=== PATIENT | female | born 1940 | race Caucasian/White ===

== ENCOUNTER → 2018-06-08 | Outpatient (CLI) | payer OTHER | LOC: M.WC 08:48 | DX: I87.312 Chronic venous hypertension (idiopathic) with ulcer of left lower extremity (principal); L97.822 Non-pressure chronic ulcer of other part of left lower leg with fat layer exposed; I89.0 Lymphedema, not elsewhere classified; I11.0 Hypertensive heart disease with heart failure; I50.22 Chronic systolic (congestive) heart failure; I48.2 Chronic atrial fibrillation; E78.2 Mixed hyperlipidemia; E03.8 Other specified hypothyroidism; E66.9 Obesity, unspecified; M05.80 Other rheumatoid arthritis with rheumatoid factor of unspecified site; M06.9 Rheumatoid arthritis, unspecified; J45.909 Unspecified asthma, uncomplicated; F33.1 Major depressive disorder, recurrent, moderate; F02.80 Dementia in other diseases classified elsewhere, unspecified severity, without behavioral disturbance, psychotic disturbance, mood disturbance, and anxiety; F41.9 Anxiety disorder, unspecified ==

== ENCOUNTER → 2018-06-15 | Outpatient (CLI) | payer OTHER | LOC: M.WC 03:23 | DX: L97.821 Non-pressure chronic ulcer of other part of left lower leg limited to breakdown of skin (principal); I87.2 Venous insufficiency (chronic) (peripheral); E66.9 Obesity, unspecified; M06.9 Rheumatoid arthritis, unspecified; J45.909 Unspecified asthma, uncomplicated; F41.9 Anxiety disorder, unspecified; F32.9 Major depressive disorder, single episode, unspecified; Z68.42 Body mass index [BMI] 45.0-49.9, adult ==

== ENCOUNTER → 2018-06-22 | Outpatient (CLI) | payer OTHER | LOC: M.WC 04:50 | DX: I87.312 Chronic venous hypertension (idiopathic) with ulcer of left lower extremity (principal); L97.821 Non-pressure chronic ulcer of other part of left lower leg limited to breakdown of skin; L03.116 Cellulitis of left lower limb; I89.0 Lymphedema, not elsewhere classified; I48.2 Chronic atrial fibrillation; I11.0 Hypertensive heart disease with heart failure; I50.22 Chronic systolic (congestive) heart failure; E78.2 Mixed hyperlipidemia; E03.8 Other specified hypothyroidism; E66.9 Obesity, unspecified; M05.80 Other rheumatoid arthritis with rheumatoid factor of unspecified site; J45.909 Unspecified asthma, uncomplicated; F02.80 Dementia in other diseases classified elsewhere, unspecified severity, without behavioral disturbance, psychotic disturbance, mood disturbance, and anxiety; F33.1 Major depressive disorder, recurrent, moderate; Z68.42 Body mass index [BMI] 45.0-49.9, adult ==

== ENCOUNTER → 2018-06-29 | Outpatient (CLI) | payer OTHER | LOC: M.WC 02:25 | DX: I87.312 Chronic venous hypertension (idiopathic) with ulcer of left lower extremity (principal); L97.821 Non-pressure chronic ulcer of other part of left lower leg limited to breakdown of skin; L03.116 Cellulitis of left lower limb; I89.0 Lymphedema, not elsewhere classified; I48.2 Chronic atrial fibrillation; I50.22 Chronic systolic (congestive) heart failure; I11.0 Hypertensive heart disease with heart failure; E78.2 Mixed hyperlipidemia; E03.8 Other specified hypothyroidism; E66.9 Obesity, unspecified; J45.909 Unspecified asthma, uncomplicated; K21.9 Gastro-esophageal reflux disease without esophagitis; M05.80 Other rheumatoid arthritis with rheumatoid factor of unspecified site; F02.80 Dementia in other diseases classified elsewhere, unspecified severity, without behavioral disturbance, psychotic disturbance, mood disturbance, and anxiety; F33.1 Major depressive disorder, recurrent, moderate; F41.9 Anxiety disorder, unspecified; Z68.42 Body mass index [BMI] 45.0-49.9, adult ==

== ENCOUNTER → 2018-07-06 | Outpatient (CLI) | payer OTHER | LOC: M.WC 04:49 | DX: I87.312 Chronic venous hypertension (idiopathic) with ulcer of left lower extremity (principal); L97.822 Non-pressure chronic ulcer of other part of left lower leg with fat layer exposed; I89.0 Lymphedema, not elsewhere classified; I48.2 Chronic atrial fibrillation; I11.0 Hypertensive heart disease with heart failure; I50.22 Chronic systolic (congestive) heart failure; E78.2 Mixed hyperlipidemia; E03.8 Other specified hypothyroidism; E66.9 Obesity, unspecified; M05.80 Other rheumatoid arthritis with rheumatoid factor of unspecified site; M06.9 Rheumatoid arthritis, unspecified; F41.9 Anxiety disorder, unspecified; F33.1 Major depressive disorder, recurrent, moderate; F02.80 Dementia in other diseases classified elsewhere, unspecified severity, without behavioral disturbance, psychotic disturbance, mood disturbance, and anxiety; Z68.42 Body mass index [BMI] 45.0-49.9, adult ==

== ENCOUNTER → 2018-07-13 | Outpatient (CLI) | payer OTHER | LOC: M.WC 04:44 | DX: I87.312 Chronic venous hypertension (idiopathic) with ulcer of left lower extremity (principal); L97.821 Non-pressure chronic ulcer of other part of left lower leg limited to breakdown of skin; L03.116 Cellulitis of left lower limb; E66.9 Obesity, unspecified; E78.2 Mixed hyperlipidemia; E03.8 Other specified hypothyroidism; I89.0 Lymphedema, not elsewhere classified; I48.2 Chronic atrial fibrillation; I11.0 Hypertensive heart disease with heart failure; I50.22 Chronic systolic (congestive) heart failure; J45.909 Unspecified asthma, uncomplicated; K21.9 Gastro-esophageal reflux disease without esophagitis; M05.80 Other rheumatoid arthritis with rheumatoid factor of unspecified site; F02.80 Dementia in other diseases classified elsewhere, unspecified severity, without behavioral disturbance, psychotic disturbance, mood disturbance, and anxiety; F41.9 Anxiety disorder, unspecified; F33.1 Major depressive disorder, recurrent, moderate; Z68.42 Body mass index [BMI] 45.0-49.9, adult ==

== ENCOUNTER → 2018-07-20 | Outpatient (CLI) | payer OTHER | LOC: M.WC 03:55 | DX: I87.312 Chronic venous hypertension (idiopathic) with ulcer of left lower extremity (principal); L97.822 Non-pressure chronic ulcer of other part of left lower leg with fat layer exposed; I89.0 Lymphedema, not elsewhere classified; I11.0 Hypertensive heart disease with heart failure; I50.22 Chronic systolic (congestive) heart failure; I48.2 Chronic atrial fibrillation; E78.2 Mixed hyperlipidemia; E03.8 Other specified hypothyroidism; E66.9 Obesity, unspecified; J45.909 Unspecified asthma, uncomplicated; K21.9 Gastro-esophageal reflux disease without esophagitis; M05.80 Other rheumatoid arthritis with rheumatoid factor of unspecified site; F41.9 Anxiety disorder, unspecified; F33.1 Major depressive disorder, recurrent, moderate; F02.80 Dementia in other diseases classified elsewhere, unspecified severity, without behavioral disturbance, psychotic disturbance, mood disturbance, and anxiety; Z68.42 Body mass index [BMI] 45.0-49.9, adult ==

== ENCOUNTER → 2018-08-03 | Outpatient (CLI) | payer OTHER | LOC: M.WC 04:51 | DX: I87.312 Chronic venous hypertension (idiopathic) with ulcer of left lower extremity (principal); L97.521 Non-pressure chronic ulcer of other part of left foot limited to breakdown of skin; L89.892 Pressure ulcer of other site, stage 2; L03.116 Cellulitis of left lower limb; I89.0 Lymphedema, not elsewhere classified; E03.8 Other specified hypothyroidism; E78.2 Mixed hyperlipidemia; I48.2 Chronic atrial fibrillation; I50.22 Chronic systolic (congestive) heart failure; I11.0 Hypertensive heart disease with heart failure; J45.909 Unspecified asthma, uncomplicated; M05.80 Other rheumatoid arthritis with rheumatoid factor of unspecified site; F33.1 Major depressive disorder, recurrent, moderate; F02.80 Dementia in other diseases classified elsewhere, unspecified severity, without behavioral disturbance, psychotic disturbance, mood disturbance, and anxiety ==

== ENCOUNTER → 2018-08-17 | Outpatient (CLI) | payer OTHER ==
[2018-08-17 11:24] LABS: CALCIUM 9.4 mg/dL (8.5-10.1); CREATININE 1.3 mg/dL (0.6-1.3)
[2018-08-17 11:28] LABS: ALBUMIN 2.7 g/dL (3.4-5.0); TOTAL BILIRUBIN 0.6 mg/dL (<0.1-1.0)
--- NOTE | 2018-09-15 14:54 | PATH ---
[address] [address] PATHOLOGY RPT PROCEDURE Name: FAVIOLA BRICE Room: [facility]#: [id number] Admission: 08/17/18 Date of : 44 Discharge: Report #: [id number] Path Case #: [id number] [facility] Accession Number: [id number] . 01 Material submitted: . LEFT FOOT WOUND . 01 Clinical history: . Left foot wound . 02 Diagnosis: Left foot tissue: - Necrotic soft tissue. - Fibrinopurulent exudate with associated bone/cartilage, cannot exclude acute osteomyelitis. (MAP:[facility]; 08/22/2018) QMS/08/22/2018 . 02 Electronically signed: . Dar Phillips MD, Pathologist NPI- [id number] . 01 Gross description: . Received in formalin labeled "Faviola Brice L foot tissue," is an irregular segment of merlos-brown soft tissue measuring 1.3 x 0.6 x 0.3 cm in greatest dimensions. The specimen is bisected and submitted entirely in cassette A1. ([facility]; 08/18/2018) XDC/XDC . 02 Pathologist provided ICD-10: M79.89 . 02 CPT . 275868 Specimen Comment: Report sent to / DR DELVALLE Specimen Comment: A duplicate report has been generated due to demographic updates. Performed at: [facility] [address], [place], [place] [id number] MD Jean-Claude Robles MD Phone: [phone] Performed at: [address] [address] [address], [place], [place] [id number] MD Patel Hennessy MD Phone: [phone]
== END ==
LOC: M.WC 05:13
PROVIDERS: Family Medicine
DX: I87.312 Chronic venous hypertension (idiopathic) with ulcer of left lower extremity (principal); L98.492 Non-pressure chronic ulcer of skin of other sites with fat layer exposed; L89.892 Pressure ulcer of other site, stage 2; E07.89 Other specified disorders of thyroid; E78.2 Mixed hyperlipidemia; E03.8 Other specified hypothyroidism; G62.9 Polyneuropathy, unspecified; I10 Essential (primary) hypertension; I89.0 Lymphedema, not elsewhere classified; I48.2 Chronic atrial fibrillation; I11.0 Hypertensive heart disease with heart failure; I50.22 Chronic systolic (congestive) heart failure; J45.909 Unspecified asthma, uncomplicated; M05.80 Other rheumatoid arthritis with rheumatoid factor of unspecified site; F02.80 Dementia in other diseases classified elsewhere, unspecified severity, without behavioral disturbance, psychotic disturbance, mood disturbance, and anxiety; F33.1 Major depressive disorder, recurrent, moderate; F41.9 Anxiety disorder, unspecified; E66.9 Obesity, unspecified; Z68.42 Body mass index [BMI] 45.0-49.9, adult

== ENCOUNTER → 2018-08-21 | Outpatient (CLI) | payer OTHER | LOC: M.MRI 14:08 | DX: S63.20 Unspecified subluxation of other finger (principal); M62.572 Muscle wasting and atrophy, not elsewhere classified, left ankle and foot; R60.9 Edema, unspecified; L03.116 Cellulitis of left lower limb; X58.XXXA Exposure to other specified factors, initial encounter; Y93.89 Activity, other specified; Y92.89 Other specified places as the place of occurrence of the external cause; Y99.8 Other external cause status ==

== ENCOUNTER → 2018-08-23 | Outpatient (CLI) | payer OTHER | LOC: M.WC 05:43 | DX: I87.312 Chronic venous hypertension (idiopathic) with ulcer of left lower extremity (principal); L89.892 Pressure ulcer of other site, stage 2; L97.821 Non-pressure chronic ulcer of other part of left lower leg limited to breakdown of skin; I87.2 Venous insufficiency (chronic) (peripheral); L02.612 Cutaneous abscess of left foot; E78.2 Mixed hyperlipidemia; E03.8 Other specified hypothyroidism; E66.9 Obesity, unspecified; I89.0 Lymphedema, not elsewhere classified; I48.2 Chronic atrial fibrillation; I11.0 Hypertensive heart disease with heart failure; I50.22 Chronic systolic (congestive) heart failure; J45.909 Unspecified asthma, uncomplicated; K21.9 Gastro-esophageal reflux disease without esophagitis; M05.80 Other rheumatoid arthritis with rheumatoid factor of unspecified site; F33.1 Major depressive disorder, recurrent, moderate; F02.80 Dementia in other diseases classified elsewhere, unspecified severity, without behavioral disturbance, psychotic disturbance, mood disturbance, and anxiety; F41.9 Anxiety disorder, unspecified; Z68.42 Body mass index [BMI] 45.0-49.9, adult ==

== ENCOUNTER → 2018-08-30 | Outpatient (CLI) | payer OTHER | LOC: M.WC 04:27 | DX: I87.312 Chronic venous hypertension (idiopathic) with ulcer of left lower extremity (principal); L97.521 Non-pressure chronic ulcer of other part of left foot limited to breakdown of skin; L89.893 Pressure ulcer of other site, stage 3; L02.612 Cutaneous abscess of left foot; S81.002A Unspecified open wound, left knee, initial encounter; E03.8 Other specified hypothyroidism; E66.9 Obesity, unspecified; E78.2 Mixed hyperlipidemia; I11.0 Hypertensive heart disease with heart failure; I50.22 Chronic systolic (congestive) heart failure; I89.0 Lymphedema, not elsewhere classified; I48.2 Chronic atrial fibrillation; J45.909 Unspecified asthma, uncomplicated; M05.80 Other rheumatoid arthritis with rheumatoid factor of unspecified site; K21.9 Gastro-esophageal reflux disease without esophagitis; F41.9 Anxiety disorder, unspecified; F33.1 Major depressive disorder, recurrent, moderate; F02.80 Dementia in other diseases classified elsewhere, unspecified severity, without behavioral disturbance, psychotic disturbance, mood disturbance, and anxiety; Z68.42 Body mass index [BMI] 45.0-49.9, adult; X58.XXXA Exposure to other specified factors, initial encounter; Y93.89 Activity, other specified; Y92.89 Other specified places as the place of occurrence of the external cause; Y99.8 Other external cause status ==

== ENCOUNTER → 2018-09-06 | Outpatient (CLI) | payer OTHER | LOC: M.WC 03:02 | DX: I87.312 Chronic venous hypertension (idiopathic) with ulcer of left lower extremity (principal); L97.522 Non-pressure chronic ulcer of other part of left foot with fat layer exposed; L89.893 Pressure ulcer of other site, stage 3; L02.612 Cutaneous abscess of left foot; S81.002D Unspecified open wound, left knee, subsequent encounter; A49.02 Methicillin resistant Staphylococcus aureus infection, unspecified site; E11.51 Type 2 diabetes mellitus with diabetic peripheral angiopathy without gangrene; E78.2 Mixed hyperlipidemia; E66.9 Obesity, unspecified; E03.8 Other specified hypothyroidism; I89.0 Lymphedema, not elsewhere classified; I11.0 Hypertensive heart disease with heart failure; I50.22 Chronic systolic (congestive) heart failure; I48.2 Chronic atrial fibrillation; J45.909 Unspecified asthma, uncomplicated; K21.9 Gastro-esophageal reflux disease without esophagitis; M05.80 Other rheumatoid arthritis with rheumatoid factor of unspecified site; F41.9 Anxiety disorder, unspecified; F33.1 Major depressive disorder, recurrent, moderate; F02.80 Dementia in other diseases classified elsewhere, unspecified severity, without behavioral disturbance, psychotic disturbance, mood disturbance, and anxiety; Z68.42 Body mass index [BMI] 45.0-49.9, adult; X58.XXXD Exposure to other specified factors, subsequent encounter ==

== ENCOUNTER → 2018-09-13 | Outpatient (CLI) | payer OTHER | LOC: M.WC 03:11 | DX: I87.312 Chronic venous hypertension (idiopathic) with ulcer of left lower extremity (principal); L97.522 Non-pressure chronic ulcer of other part of left foot with fat layer exposed; L89.893 Pressure ulcer of other site, stage 3; E78.2 Mixed hyperlipidemia; E03.8 Other specified hypothyroidism; E66.9 Obesity, unspecified; I89.0 Lymphedema, not elsewhere classified; I11.0 Hypertensive heart disease with heart failure; I50.22 Chronic systolic (congestive) heart failure; I48.2 Chronic atrial fibrillation; J45.909 Unspecified asthma, uncomplicated; K21.9 Gastro-esophageal reflux disease without esophagitis; M05.80 Other rheumatoid arthritis with rheumatoid factor of unspecified site; F41.9 Anxiety disorder, unspecified; F02.80 Dementia in other diseases classified elsewhere, unspecified severity, without behavioral disturbance, psychotic disturbance, mood disturbance, and anxiety; F33.1 Major depressive disorder, recurrent, moderate; Z68.42 Body mass index [BMI] 45.0-49.9, adult ==

== ENCOUNTER → 2018-09-27 | Outpatient (CLI) | payer OTHER | LOC: M.WC 05:05 | DX: I87.312 Chronic venous hypertension (idiopathic) with ulcer of left lower extremity (principal); L89.893 Pressure ulcer of other site, stage 3; L97.522 Non-pressure chronic ulcer of other part of left foot with fat layer exposed; L02.612 Cutaneous abscess of left foot; E11.51 Type 2 diabetes mellitus with diabetic peripheral angiopathy without gangrene; E03.8 Other specified hypothyroidism; E78.2 Mixed hyperlipidemia; E66.9 Obesity, unspecified; I11.0 Hypertensive heart disease with heart failure; I50.22 Chronic systolic (congestive) heart failure; I89.0 Lymphedema, not elsewhere classified; I48.2 Chronic atrial fibrillation; J45.909 Unspecified asthma, uncomplicated; K21.9 Gastro-esophageal reflux disease without esophagitis; M05.80 Other rheumatoid arthritis with rheumatoid factor of unspecified site; F02.80 Dementia in other diseases classified elsewhere, unspecified severity, without behavioral disturbance, psychotic disturbance, mood disturbance, and anxiety; F41.9 Anxiety disorder, unspecified; F32.9 Major depressive disorder, single episode, unspecified ==

== ENCOUNTER → 2018-10-11 | Outpatient (CLI) | payer OTHER | LOC: M.WC 04:33 | DX: I87.312 Chronic venous hypertension (idiopathic) with ulcer of left lower extremity (principal); L89.893 Pressure ulcer of other site, stage 3; L97.522 Non-pressure chronic ulcer of other part of left foot with fat layer exposed; L02.612 Cutaneous abscess of left foot; B35.1 Tinea unguium; E03.8 Other specified hypothyroidism; E78.2 Mixed hyperlipidemia; I11.0 Hypertensive heart disease with heart failure; I50.22 Chronic systolic (congestive) heart failure; I48.2 Chronic atrial fibrillation; I89.0 Lymphedema, not elsewhere classified; I73.9 Peripheral vascular disease, unspecified; J45.909 Unspecified asthma, uncomplicated; M05.80 Other rheumatoid arthritis with rheumatoid factor of unspecified site; F33.1 Major depressive disorder, recurrent, moderate; F02.80 Dementia in other diseases classified elsewhere, unspecified severity, without behavioral disturbance, psychotic disturbance, mood disturbance, and anxiety ==

== ENCOUNTER → 2018-10-25 | Outpatient (CLI) | payer OTHER | LOC: M.WC 04:41 | DX: I87.312 Chronic venous hypertension (idiopathic) with ulcer of left lower extremity (principal); L97.522 Non-pressure chronic ulcer of other part of left foot with fat layer exposed; L89.893 Pressure ulcer of other site, stage 3; L02.612 Cutaneous abscess of left foot; B35.1 Tinea unguium; E03.8 Other specified hypothyroidism; E78.2 Mixed hyperlipidemia; I11.0 Hypertensive heart disease with heart failure; I50.22 Chronic systolic (congestive) heart failure; I89.0 Lymphedema, not elsewhere classified; I48.2 Chronic atrial fibrillation; I73.9 Peripheral vascular disease, unspecified; J45.909 Unspecified asthma, uncomplicated; K21.9 Gastro-esophageal reflux disease without esophagitis; M05.80 Other rheumatoid arthritis with rheumatoid factor of unspecified site; F41.9 Anxiety disorder, unspecified; F33.1 Major depressive disorder, recurrent, moderate; F02.80 Dementia in other diseases classified elsewhere, unspecified severity, without behavioral disturbance, psychotic disturbance, mood disturbance, and anxiety ==

== ENCOUNTER → 2018-11-08 | Outpatient (CLI) | payer OTHER | LOC: M.WC 12:35 | DX: I87.312 Chronic venous hypertension (idiopathic) with ulcer of left lower extremity (principal); L89.893 Pressure ulcer of other site, stage 3; L97.521 Non-pressure chronic ulcer of other part of left foot limited to breakdown of skin; L97.511 Non-pressure chronic ulcer of other part of right foot limited to breakdown of skin; L02.612 Cutaneous abscess of left foot; B35.1 Tinea unguium; E03.8 Other specified hypothyroidism; E78.2 Mixed hyperlipidemia; E66.9 Obesity, unspecified; I11.0 Hypertensive heart disease with heart failure; I50.22 Chronic systolic (congestive) heart failure; I89.0 Lymphedema, not elsewhere classified; I48.2 Chronic atrial fibrillation; I73.9 Peripheral vascular disease, unspecified; J45.909 Unspecified asthma, uncomplicated; K21.9 Gastro-esophageal reflux disease without esophagitis; M05.80 Other rheumatoid arthritis with rheumatoid factor of unspecified site; F41.9 Anxiety disorder, unspecified; F33.1 Major depressive disorder, recurrent, moderate; F02.80 Dementia in other diseases classified elsewhere, unspecified severity, without behavioral disturbance, psychotic disturbance, mood disturbance, and anxiety; Z68.42 Body mass index [BMI] 45.0-49.9, adult ==